=== PATIENT | female | born 1955 | race African-American/Black ===

== ENCOUNTER 2017-07-14 14:16 | Emergency (ER) | payer OTHER ==
[~2017-07-14] VITALS: Ht 162.6 cm; Wt 120.2 kg
[~2017-07-14 14:16] MED LIST: METOPROLOL TART50 MG; OMEPRAZOLE20 M1
[2017-07-14] MEDS ORDERED: SODIUM CHLORIDE 0.9% 1000ML 1,000 ML IV STA (14:33)
[2017-07-14] MEDS ORDERED: MORPHINE SULFATE 4 MG/ML SYR IV STA (14:33)
[2017-07-14 15:15] LABS: BASOPHILS % 0.2 % (0.0-1.0); EOSINOPHILS # (AUTO) 0.1 (0.0-0.4); EOSINOPHILS % 0.5 % (0.0-6.0); HEMATOCRIT 38.2 % (34.2-44.1); HEMOGLOBIN 12.4 g/dL (12.0-16.0); LYMPHOCYTES % 28.3 % (18.0-39.1); MEAN CORPUSCULAR HEMOGLOBIN 24.6 pg (28-32); MEAN CORPUSCULAR HGB CONC 32.5 g/dL (31-35); MEAN CORPUSCULAR VOLUME 75.8 fL (81-99); MONOCYTES # (AUTO) 1.3 (0.2-0.8); MONOCYTES % 7.2 % (4.4-11.3); NEUTROPHILS # (AUTO) 11.2 (2.1-6.9); NEUTROPHILS % 63.3 % (38.7-80.0); PLATELET COUNT 371 x10e3/uL (140-360); RED BLOOD COUNT 5.04 x10e6/uL (3.6-5.1); RED CELL DISTRIBUTION WIDTH 16.8 % (11.7-14.4)
[2017-07-14 15:38] LABS: ALANINE AMINOTRANSFERASE 20 IU/L (0-55); ALBUMIN 3.3 g/dL (3.5-5.0); ALBUMIN/GLOBULIN RATIO 0.7 (0.8-2.0); ALKALINE PHOSPHATASE 129 IU/L (40-150); AMYLASE 71 U/L (25-125); ANION GAP 14.5 mmol/L (8-16); BLOOD UREA NITROGEN 18 mg/dL (7-26); BUN/CREATININE RATIO 19 (6-25); CALCIUM 8.9 mg/dL (8.4-10.2); CARBON DIOXIDE 28 mmol/L (22-29); CHLORIDE 99 mmol/L (98-107); CREATINE KINASE 558 IU/L (29-168); CREATININE, SERUM 0.94 mg/dL (0.57-1.11); EST GLOMERULAR FILTRATION RATE > 60 ML/MIN (60-); GLUCOSE 118 mg/dL (74-118); LIPASE 45 U/L (8-78); MAGNESIUM 1.3 MG/DL (1.3-2.1); POTASSIUM 3.5 mmol/L (3.5-5.1); SODIUM 138 mmol/L (136-145)
[2017-07-14] MEDS ORDERED: MORPHINE SULFATE 2 MG/ML SYR ONE (15:56)
[2017-07-14] MEDS ORDERED: IOPAMIDOL 370 MG/ML 200 ML INFUS..BTL INJ ONE (16:52)
[2017-07-14] MEDS ORDERED: SODIUM CHLORIDE 0.9% 50ML 50 ML ONE (16:52)
--- NOTE | 2017-07-14 17:09 | Diagnostic Imaging Report ---
EXAM: Right Upper Quadrant Ultrasound INDICATION: \S\ABD PAIN \S\Y COMPARISON: None. TECHNIQUE: Transverse and longitudinal images of the right upper abdomen were obtained. FINDINGS: Liver: Size: 16.7 cm in the right midclavicular line, normal Appearance: Normal echogenicity, smooth contour Mass: No focal masses Gallbladder: Stones/Sludge: None Wall: 0.3 cm Appearance: No pericholecystic fluid or hydrops. Sonographic Khan's Sign: Negative Bile Ducts: Intrahepatic Ducts: No dilatation Extrahepatic Ducts: Common bile duct measures 0.3 cm, no dilatation Pancreas: Not well visualized. Right Kidney: Size: 9.5 cm Echogenicity: Normal Parenchymal thickness: Normal Collecting system: No hydronephrosis Stones: None Cyst/Mass: None Vessels: Aorta: Not well visualized. Inferior Vena Cava: Visualized portions are normal Main Portal Vein: 0.9 cm, normal size with hepatopetal flow. Free Fluid: No ascites or pleural effusion IMPRESSION: Unremarkable right upper quadrant ultrasound. Signed by: Dr. Serge Noland MD on 07/14/2017 5:06 PM
--- NOTE | 2017-07-14 17:17 | Diagnostic Imaging Report ---
EXAM: CT Abdomen and Pelvis WITH contrast INDICATION: \S\RUQ pain \[id number] \S\[id number] COMPARISON: Same day ultrasound. TECHNIQUE: Abdomen and pelvis were scanned utilizing a multidetector helical scanner from the lung base to the pubic symphysis after administration of IV contrast. Coronal and sagittal reformations were obtained. Routine protocol was performed. Scan was performed when during portal venous phase. IV CONTRAST: 100 mL of Isovue-370 ORAL CONTRAST: Water COMPLICATIONS: None RADIATION DOSE: Total DLP: 862.26 mGy*cm Estimated effective dose: (DLP x 0.015 x size factor) mSv CTDIvol has been reviewed. It is below the limits set by the Radiation Protocol Committee (RPC). FINDINGS: LINES and TUBES: None. LOWER THORAX: Unremarkable. Dependent atelectasis. HEPATOBILIARY: No focal hepatic lesions. No biliary ductal dilation. GALLBLADDER: No radio-opaque stones or sludge. No wall thickening. SPLEEN: No splenomegaly. PANCREAS: No focal masses or ductal dilatation. ADRENALS: No adrenal nodules KIDNEYS/URETERS: Kidneys enhance symmetrically. No hydronephrosis. No renal mass. Bilateral subcentimeter hypodensities which are too small to characterize. No stones. GI TRACT: No abnormal distention, wall thickening, or evidence of bowel obstruction. Appendix is not clearly identified. There is however no fat stranding or adenopathy in the right lower quadrant to suggest appendicitis. PELVIC ORGANS/BLADDER: Limited evaluation due to streak artifacts. LYMPH NODES: No lymphadenopathy. VESSELS: Unremarkable. PERITONEUM / RETROPERITONEUM: No free air or fluid. BONES: Bilateral hip prosthesis. L5-S1 degenerative changes. SOFT TISSUES: Small fat-containing umbilical hernia. IMPRESSION: 1. No acute inflammatory process in the abdomen/pelvis. Signed by: Dr. Serge Noland MD on 07/14/2017 5:13 PM
[2017-07-14 17:50] LABS: BILIRUBIN,URINE NEGATIVE (NEGATIVE); CLARITY,URINE CLEAR (CLEAR); COLOR,URINE YELLOW (YELLOW); KETONES,URINE NEGATIVE (NEGATIVE); LEUKOCYTE ESTERASE ,URINE NEGATIVE (NEGATIVE); NITRITE,URINE NEGATIVE (NEGATIVE); PROTEIN,URINE DIPSTICK NEGATIVE (NEGATIVE); URINE UROBILINOGEN 0.2 mg/dL (0.2 - 1)
[2017-07-14 18:50] VITALS: BP 139/57
== END 2017-07-14 18:56 | disposition home or self-care (01) ==
LOC: ER 14:16
DX: R10.11 Right upper quadrant pain (principal); R19.7 Diarrhea, unspecified
CPT/HCPCS: 36415; 74177; 76705; 80053; 81001; 82150; 82550; 82553; 83690; 83735; 84484; 84550; 85025; 87400; 93005; 99284; J2270; J7030; Q9967